=== PATIENT | female | born 1985 | race Caucasian/White ===

== ENCOUNTER 2023-07-05 14:53 | Emergency (ER) | payer SELFPAY ==
[2023-07-05 14:59] VITALS: BP 168/99; PULSE 89; RESP 20; TEMP 37; O2SAT 98; BMI 24.2
== END 2023-07-05 15:26 | disposition left against medical advice (07) ==
LOC: ER 15:14
PROVIDERS: Emergency Provider Emergency Medicine
DX: Z53.21 Procedure and treatment not carried out due to patient leaving prior to being seen by health care provider (principal)

== ENCOUNTER 2023-08-07 01:56 | Emergency (ER) | payer MEDICAID, SELFPAY ==
[2023-08-07 01:59] VITALS: BP 141/109; PULSE 123; RESP 18; O2SAT 97; BMI 24.6
--- NOTE | 2023-08-07 02:15 | ED.UPPEXIN1 ---
HPI - Extremity Injury (Upper) General Chief Complaint: Extremity Injury, Upper Stated Complaint: RING STUCK ON FINGER Time Seen by Provider: 08/07/23 01:58 Source: patient Mode of arrival: walk-in History of Present Illness HPI narrative: [id number] presents for swelling to her fingers and stuck rings. They are on her right hand, little and ring fingers. It happened yesterday. She was at another hospital but at that point they were not removed. she is vague about the injury but apparently punched an object yesterday. Related Data Home Medications Medication Instructions Recorded Confirmed acamprosate 333 mg tablet,delayed 666 mg PO TID 07/05/23 07/05/23 release buprenorphine 8 mg-naloxone 2 mg 1 film sublingual BID 07/05/23 07/05/23 sublingual film gabapentin 300 mg capsule 300 mg PO TID 07/05/23 07/05/23 hydroxyzine pamoate 25 mg capsule 25 mg PO TID 07/05/23 07/05/23 ondansetron HCl 8 mg tablet 8 mg PO TID 07/05/23 07/05/23 quetiapine 100 mg tablet 100 mg PO BEDTIME 07/05/23 07/05/23 Allergies Allergy/AdvReac Type Severity Reaction Status Date / Time No Known Drug Allergies Allergy Verified 07/05/23 14:58 Review of Systems ROS Narrative A ten point review of systems is negative except as noted above. PFSH PFSH Social History Smoking status: Light tobacco smoker Exam Narrative Exam Narrative: Nurses note and vital signs reviewed and patient is not hypoxic. General: The patient is tearful and uncooperative Skin: Warm, dry, no pallor noted. There is no rash noted. Head: Normocephalic, atraumatic Eye: Normal conjunctiva, no drainage Ears, Nose, Mouth, and Throat: oral mucosa is moist. Nares patent. Cardiovascular: Regular Rate and Rhythm Respiratory: Patient is in no distress, no accessory muscle use, lungs are clear to auscultation, no wheezing, rales or rhonchi Back: non-tender GI: soft and nontender Musculoskeletal: right hand is examined. Rings are present on both the ring and middle fingers. There is some bruising and swelling present. Skin intact. Neurological: A&O, normal speech Psychiatric: uncooperative Constitutional Vital Signs, click to edit/add: Last Vital Signs Pulse 123 H 08/07/23 01:59 Resp 18 08/07/23 01:59 BP 141/109 H 08/07/23 01:59 Pulse Ox 97 08/07/23 01:59 Course Vital Signs Vital signs: Vital Signs Pulse Rate 123 H 08/07/23 01:59 Respiratory Rate 18 08/07/23 01:59 Blood Pressure 141/109 H 08/07/23 01:59 Pulse Oximetry 97 08/07/23 01:59 Pulse Rate 123 H 08/07/23 01:59 Respiratory Rate 18 08/07/23 01:59 Blood Pressure 141/109 H 08/07/23 01:59 Pulse Oximetry 97 08/07/23 01:59 MDM - Extremity Injury (Upper) MDM Narrative Medical decision making narrative: the rings were removed by nursing staff. The intention was to do x-rays but the patient walked out and refused to have them performed. Discharge Plan Discharge Chief Complaint: Extremity Injury, Upper Clinical Impression: Foreign body finger Patient Disposition: Left Against Medical Advice Time of Disposition Decision: 03:21 Condition: Good Prescriptions / Home Meds: No Action acamprosate 333 mg tablet,delayed release (DR/EC) 666 mg PO TID buprenorphine-naloxone 8-2 mg film 1 film sublingual BID gabapentin 300 mg capsule 300 mg PO TID hydroxyzine pamoate 25 mg capsule 25 mg PO TID ondansetron HCl 8 mg tablet 8 mg PO TID quetiapine 100 mg tablet 100 mg PO BEDTIME Stand Alone Forms: Portal Instructions Referrals: Physician,Non-Staff, MD [Primary Care Provider] - 1 week
== END 2023-08-07 03:33 | disposition home or self-care (01) ==
PROVIDERS: Emergency Provider Emergency Medicine
DX: S60.444A External constriction of right ring finger, initial encounter (principal); S60.442A External constriction of right middle finger, initial encounter; W49.04XA Ring or other jewelry causing external constriction, initial encounter; F17.210 Nicotine dependence, cigarettes, uncomplicated; Z79.899 Other long term (current) drug therapy
CPT/HCPCS: 99282